=== PATIENT | female | born 1995 | race Two or more races ===

== ENCOUNTER 2021-11-07 06:11 | Inpatient (IN) | payer OTHER ==
[~2021-11-07] VITALS: Ht 160 cm; Wt 81.6 kg
[2021-11-07] MEDS ORDERED: PRENATAL TABLE1 EAC1 PO (07:19)
== END 2021-11-09 15:16 | disposition home or self-care (01) | DRG 807 ==
LOC: LDR 06:11 → OB/GYN 14:36
PROVIDERS: ADMIT Specialist; ATTEND Specialist
PROC: 10E0XZZ Delivery of Products of Conception, External Approach (ICD-10-PCS; principal; 2021-11-07)
PROC: 0UQMXZZ Repair Vulva, External Approach (ICD-10-PCS; 2021-11-07)
PROC: 10907ZC Drainage of Amniotic Fluid, Therapeutic from Products of Conception, Via Natural or Artificial Opening (ICD-10-PCS; 2021-11-07)
PROC: 3E033VJ Introduction of Other Hormone into Peripheral Vein, Percutaneous Approach (ICD-10-PCS; 2021-11-07)
PROC: 4A1HXFZ Monitoring of Products of Conception, Cardiac Rhythm, External Approach (ICD-10-PCS; 2021-11-07)
DX: O71.82 Other specified trauma to perineum and vulva (principal); Z37.0 Single live birth; O24.420 Gestational diabetes mellitus in childbirth, diet controlled; Z3A.39 39 weeks gestation of pregnancy